=== PATIENT | male | born 1950 | race Caucasian/White ===

== ENCOUNTER → 2016-11-23 | Outpatient (CLI) | payer MEDICARE, OTHER ==
[~2016-11-23] MED LIST: AMINOPHYLLINE 25 MG/ML, 10ML ONE; ASPI-621 PO; LOSA25TA5 PO; METF10002 PO; PRAV10TA2 PO; PRAV40TA PO; REGADENOSON 0.4 MG/5 ML SYRINGE ONE; SERT25TA PO; TICA90TA PO
== END | disposition home or self-care (01) ==
LOC: CFH 07:46
PROVIDERS: ATTEND Internal Medicine Cardiovascular Disease
DX: I25.10 Atherosclerotic heart disease of native coronary artery without angina pectoris (principal); I10 Essential (primary) hypertension; E11.9 Type 2 diabetes mellitus without complications; E78.5 Hyperlipidemia, unspecified
CPT/HCPCS: 36415; 78452; 80061; 80076; 93017; A9502; J0280; J2785

== ENCOUNTER 2019-03-28 17:23 | Inpatient (IN) | payer MEDICARE, OTHER ==
[~2019-03-28] VITALS: Ht 177.8 cm; Wt 110.5 kg
[~2019-03-28 17:23] MED LIST changes: -AMINOPHYLLINE 25 MG/ML, 10ML ONE; -ASPI-621 PO; +ASPI81TA45 PO; +LOSA25TA25 PO; -LOSA25TA5 PO; -REGADENOSON 0.4 MG/5 ML SYRINGE ONE
[2019-03-28] MEDS ORDERED: MORPHINE SULFATE 4 MG/ML, 1ML ONE ×2 (18:23→21:18)
[2019-03-28] MEDS ORDERED: SODIUM CHLORIDE FLUSH 10ML SYR IVF ONE (18:30)
[2019-03-28] MEDS: MORPHINE SULFATE 4 MG/ML, 1ML IVPush PRN ×2 (18:33→21:23)
[2019-03-28 18:48] LABS: BASOPHILS # (AUTO) 0.02 x10^3/uL (0-0.1); BASOPHILS % (AUTO) 0 % (0-1); EOSINOPHILS # (AUTO) 0.23 x10^3/uL (0-0.4); EOSINOPHILS % (AUTO) 3 % (1-7); LYMPHOCYTES # (AUTO) 1.52 x10^3/uL (1-3.4); LYMPHOCYTES % (AUTO) 22 % (22-44); MD NO; MEAN CORPUSCULAR HEMOGLOBIN 31.9 pg (27.5-34.5); MEAN CORPUSCULAR HGB CONC 32.9 g/dL (33.2-36.2); MEAN CORPUSCULAR VOLUME 97.1 fL (81-97); MEAN PLATELET VOLUME 9.7 fL (7.4-10.4); MONOCYTES # (AUTO) 0.39 x10^3/uL (0.2-0.8); MONOCYTES % (AUTO) 6 % (2-9); NEUTROPHILS # (AUTO) 4.77 x10^3/uL (1.8-6.8); NEUTROPHILS % (AUTO) 69 % (42-75); PLATELET COUNT 162 x10^3/uL (130-400); RED BLOOD COUNT 5.05 x10^6/uL (4.38-5.82); RED CELL DISTRIBUTION WIDTH 13.6 % (9.4-14.8)
[2019-03-28 18:54] LABS: ALANINE AMINOTRANSFERASE 54 U/L (12-78); ALBUMIN 4.3 g/dL (3.4-5.0); ANION GAP 7 mmol/L (5-15); CALCIUM 9.3 mg/dL (8.5-10.1); CHLORIDE 108 mmol/L (98-107); CREATININE 0.99 mg/dL (0.7-1.3)
[2019-03-28 18:55] LABS: D-DIMER 0.33 ug/mlFEU (0.00-0.52); INTERNATIONAL NORMALIZED RATIO 1.02 (0.93-1.1); PROTHROMBIN TIME 10.7 Seconds (9.6-11.5)
[2019-03-28 18:56] LABS: ALKALINE PHOSPHATASE 86 U/L (45-117); BILIRUBIN,TOTAL 1.4 mg/dL (0.2-1.0); TOTAL PROTEIN 7.5 g/dL (6.4-8.2)
--- NOTE | 2019-03-28 18:58 | NUR ---
PT HAS CO ONGOING LOWER BACK PAIN. PAIN WORSE WHEN LIFTING LEGS AND TAKING A DEEP BREATH. PEDAL PULSED 2+. SENSATION INTACT. NO INJURY OR TRAUMA. PT STATES PAIN HAS BEEN THERE FOR ABOUT A MONTH. IV ESTABLISHED. MEDICATED PER ORDERS.
[2019-03-28 19:31] LABS: MICROSCOPIC NOT IND
[2019-03-28 19:37] LABS: CULTURE INDICATED? NO
--- NOTE | 2019-03-28 20:13 | NUR ---
PT REQUESTION FOOD AND WATER. PT AWARE TO WAIT UNTIL ALL TESTS ARE DONE PER MD REQUEST. PT RESITNG COMFORTABLE.
--- NOTE | 2019-03-28 20:50 | NUR ---
REPORT RECEIVED AND CARE ASSUMED. ERP IN TO RECHECK PT. AWAITING FURTHER DISPO.
--- NOTE | 2019-03-28 21:25 | NUR ---
PT REQUESTING MORE PAIN MEDS. PT MEDICATED PER JUL. PT PLACED ON 2L NC S/T RA 89%--PT HAS HX OF SLEEP APNEA AND USES A CPAP AT HOME. NO FURTHER NEEDS EXPRESSED AT THIS TIME. AWAITING ADMISSION TO THE FLOOR. CALL LIGHT IN REACH.
[2019-03-28] MEDS ORDERED: [UNRECOGNIZED DRUG - REMARK] PO (21:45)
[2019-03-28] MEDS ORDERED: METF500T17 PO (21:45)
--- NOTE | 2019-03-28 22:02 | NUR ---
ADMITTING MD AT BEDSIDE. PT TO BE TRANSFERRED TO FLOOR.
[2019-03-28 22:32] VITALS: BP 162/75
[2019-03-28 22:55] VITALS: BP 162/75
[2019-03-28] MEDS ORDERED: POLYETHYLENE GLYCOL 17 GM PACKET PO PRN (23:00)
[2019-03-28] MEDS ORDERED: BISACODYL 10 MG SUPP PR PRN (23:00)
[2019-03-28] MEDS ORDERED: PRAVASTATIN 40 MG TABLET PO SCH (23:00)
[2019-03-28] MEDS ORDERED: ACETAMINOPHEN 325 MG TABLET PO PRN (23:00)
[2019-03-28] MEDS ORDERED: DOCUSATE 100 MG CAPSULE PO PRN (23:00)
[2019-03-28] MEDS ORDERED: OXYcodone IR 5MG TABLET PO PRN (23:00)
[2019-03-28] MEDS ORDERED: morphine SULFATE 10 MG/ML, 1ML IVPush PRN (23:00)
[2019-03-28] MEDS ORDERED: hydrALAzine 20 MG/ML, 1ML IVPush PRN (23:00)
[2019-03-28] MEDS ORDERED: ONDANSETRON 2MG/ML, 2ML IVPush PRN (23:00)
[2019-03-28] MEDS ORDERED: PROMETHAZINE 25 MG/ML, 1ML IM PRN (23:00)
[2019-03-28] MEDS ORDERED: ONDANSETRON ODT 4 MG PO PRN (23:00)
[2019-03-28] MEDS: SODIUM CHLORIDE 0.9% 1,000 ML IV SCH (23:03)
[2019-03-28 23:14] LABS: C-REACTIVE PROTEIN, QUANT 0.72 mg/dL (0.02-0.49)
[2019-03-28 23:37] LABS: HEMOGLOBIN A1C 5.9 % (4.2-6.3)
[2019-03-28 23:40] LABS: FREE T4 (FREE THYROXINE) 0.87 ng/dL (0.76-1.46)
[2019-03-29] MEDS ORDERED: OMNIPAQUE 350 MG/ML, 100ML BOTTLE ONE (00:11)
[2019-03-29 02:07] VITALS: BP 101/64
[2019-03-29 05:49] LABS: BASOPHILS # (AUTO) 0.03 x10^3/uL (0-0.1); BASOPHILS % (AUTO) 1 % (0-1); EOSINOPHILS # (AUTO) 0.33 x10^3/uL (0-0.4); EOSINOPHILS % (AUTO) 6 % (1-7); LYMPHOCYTES # (AUTO) 1.68 x10^3/uL (1-3.4); LYMPHOCYTES % (AUTO) 28 % (22-44); MD NO; MEAN CORPUSCULAR HEMOGLOBIN 31.7 pg (27.5-34.5); MEAN CORPUSCULAR HGB CONC 32.7 g/dL (33.2-36.2); MEAN CORPUSCULAR VOLUME 96.7 fL (81-97); MEAN PLATELET VOLUME 9.1 fL (7.4-10.4); MONOCYTES # (AUTO) 0.35 x10^3/uL (0.2-0.8); MONOCYTES % (AUTO) 6 % (2-9); NEUTROPHILS # (AUTO) 3.67 x10^3/uL (1.8-6.8); NEUTROPHILS % (AUTO) 61 % (42-75); PLATELET COUNT 132 x10^3/uL (130-400); RED BLOOD COUNT 4.57 x10^6/uL (4.38-5.82); RED CELL DISTRIBUTION WIDTH 13.6 % (9.4-14.8)
[2019-03-29 05:59] LABS: ALBUMIN 3.8 g/dL (3.4-5.0); ANION GAP 6 mmol/L (5-15); CALCIUM 8.3 mg/dL (8.5-10.1); CHLORIDE 107 mmol/L (98-107)
[2019-03-29 06:02] LABS: ALANINE AMINOTRANSFERASE 48 U/L (12-78); ALKALINE PHOSPHATASE 71 U/L (45-117); BILIRUBIN,TOTAL 1.3 mg/dL (0.2-1.0); CHOLESTEROL, TOTAL 121 mg/dL (140-239); CREATININE 0.98 mg/dL (0.7-1.3); HDL CHOLESTEROL (DIRECT) 30 mg/dL (40-60); TOTAL PROTEIN 6.3 g/dL (6.4-8.2); TRIGLYCERIDES 306 mg/dL (50-200); VLDL CHOLESTEROL 61 mg/dL (0-25)
[2019-03-29 06:03] LABS: HDL CHOL % 25 % (26-37); LDL CHOLESTEROL,CALCULATED 30 mg/dL (54-169)
[2019-03-29] MEDS: INSULIN LISPRO 100 UNITS/ML, PEN SQ-INSULIN SCH ×3 (07:00→16:00)
[2019-03-29] MEDS: SODIUM CHLORIDE 0.9% 1,000 ML IV SCH (07:35)
[2019-03-29 08:17] VITALS: BP 125/65
[2019-03-29] MEDS ORDERED: ASPIRIN 81 MG TABLET EC PO SCH (09:00)
[2019-03-29] MEDS ORDERED: LOSARTAN 25MG TABLET PO SCH (09:00)
[2019-03-29] MEDS ORDERED: SERTRALINE 50MG TABLET PO SCH (09:00)
[2019-03-29] MEDS ORDERED: GADOTERATE 10 MMOL/20 ML SYR ONE (12:49)
[2019-03-29 13:32] VITALS: BP 132/72
[2019-03-29] MEDS ORDERED: DIAZ5TAB PO (15:07)
[2019-03-29] MEDS ORDERED: HYDR-3622 PO (15:07)
== END 2019-03-29 17:50 | disposition home or self-care (01) | DRG 552 ==
LOC: ED 21:10 → EDIP 21:51 → 3N 22:28
PROVIDERS: ADMIT Internal Medicine; ATTEND Internal Medicine
DX: M48.061 Spinal stenosis, lumbar region without neurogenic claudication (principal); M54.16 Radiculopathy, lumbar region; I10 Essential (primary) hypertension; E11.9 Type 2 diabetes mellitus without complications; I25.10 Atherosclerotic heart disease of native coronary artery without angina pectoris; E66.9 Obesity, unspecified; G89.29 Other chronic pain; E78.5 Hyperlipidemia, unspecified; Z87.891 Personal history of nicotine dependence; Z72.89 Other problems related to lifestyle; Z98.1 Arthrodesis status; Z95.5 Presence of coronary angioplasty implant and graft; Z90.49 Acquired absence of other specified parts of digestive tract; Z82.49 Family history of ischemic heart disease and other diseases of the circulatory system; Z88.0 Allergy status to penicillin; Z68.35 Body mass index [BMI] 35.0-35.9, adult; Z79.899 Other long term (current) drug therapy
CPT/HCPCS: 36415; 71045; 72131; 72158; 74177; 80053; 80061; 81003; 82306; 82607; 82962; 83036; 83690; 83735; 84439; 84443; 85025; 85379; 85610; 85651; 85730; 86140; G0378; Q9967; A9575; J2270; J7030

== ENCOUNTER → 2019-04-17 | Outpatient (CLI) | payer MEDICARE, OTHER ==
[~2019-04-17] MED LIST changes: +ALLO300T PO; +AMLO5TAB4 PO; +DIAZ5TAB PO; +GABA300C10 PO; +HYDR-3622 PO; +HYDR25TA6 PO; +METF500T17 PO; +METO25TA91 PO; +OMEP40CA42 PO; +ONDA4TAB7 PO; +OXYC10TA6 PO; +PRAV80TA2 PO; +SERT100T32 PO; +[UNRECOGNIZED DRUG - REMARK] PO
[2019-04-17 15:54] LABS: HEMOGLOBIN A1C 5.8 % (4.2-6.3)
== END | disposition home or self-care (01) ==
LOC: STAR 13:58
PROVIDERS: ATTEND Orthopaedic Surgery Orthopaedic Surgery of the Spine
DX: Z01.818 Encounter for other preprocedural examination (principal); M43.16 Spondylolisthesis, lumbar region; M48.061 Spinal stenosis, lumbar region without neurogenic claudication; T85.898A Other specified complication of other internal prosthetic devices, implants and grafts, initial encounter; Y83.8 Other surgical procedures as the cause of abnormal reaction of the patient, or of later complication, without mention of misadventure at the time of the procedure
CPT/HCPCS: 36415; 83036; 93005

== ENCOUNTER → 2019-11-18 | Outpatient (CLI) | payer MEDICARE, OTHER | END | disposition home or self-care (01) | LOC: CVU 12:15 | PROVIDERS: ATTEND Internal Medicine Cardiovascular Disease | DX: I35.8 Other nonrheumatic aortic valve disorders (principal); I11.9 Hypertensive heart disease without heart failure | CPT/HCPCS: 93306 ==

== ENCOUNTER → 2020-02-18 | Outpatient (CLI) | payer MEDICARE, OTHER ==
[~2020-02-18] MED LIST changes: +REGADENOSON 0.4 MG/5 ML SYRINGE ONE
== END | disposition home or self-care (01) ==
LOC: CFH 07:17
PROVIDERS: ATTEND Internal Medicine Cardiovascular Disease
DX: I25.10 Atherosclerotic heart disease of native coronary artery without angina pectoris (principal); I48.92 Unspecified atrial flutter
CPT/HCPCS: 78452; 93017; A9502; J2785